=== PATIENT | male | born 1990 | race Caucasian/White ===

== ENCOUNTER 2023-05-15 17:29 | Emergency (ER) | payer BC, SELFPAY ==
[2023-05-15 17:38] VITALS: BP 130/84; PULSE 82; RESP 18; TEMP 36.7; O2SAT 100
--- NOTE | 2023-05-15 18:33 | ED.MALEGU ---
HPI - Male Genitourinary General Chief complaint: Urogenital-Male Stated complaint: std test Time Seen by Provider: 05/15/23 18:20 Source: patient, RN notes reviewed and old records reviewed Mode of arrival: ambulatory Limitations: no limitations History of Present Illness HPI Narrative: 33 year old male presets to express care with concern for std exposure. Patient reports that his significant other was diagnosed with gonorrhea this week. He states positive exposure to gonorrhea from significant other and wants to be tested and treated today. Patient reports that he has no symptoms of penis pain or any drainage or any burning with urination. Patient reports that he has scattered red rash that he thinks is from gonorrhea, no pustules noted, on arms and legs none reported in groin.. MD Complaint: other (reports exposure to gonorrhea) Onset (ago): day(s) (2) Associated symptoms: Reports rash Related Data Allergies Allergy/AdvReac Type Severity Reaction Status Date / Time No Known Allergies Allergy Verified 05/15/23 17:59 Review of Systems Review of Systems: CONSTITUTIONAL: Denies fever, chills, or sweats. CARDIOVASCULAR: Denies chest pain, palpitations, or edema. RESPIRATORY: Denies cough or dyspnea. GASTROINTESTINAL: Denies abdominal pain, nausea, vomiting, or diarrhea. GENITOURINARY: Reports no dysuria, frequency, urgency. Denies flank pain or hematuria.no penis pain or drainage SKIN: Reports red scattered small raised rash on arms and legs,itching. MUSCULOSKELETAL: Denies back pain or myalgia. Denies CVA tenderness NEUROLOGIC: Denies headache All systems reviewed & are unremarkable except as noted in HPI and below PMFSH Past Medical History Medical History (Updated 05/17/23 @ 16:41 by Margie Zepeda NP) Anxiety Borderline personality disorder Social History Social History (Updated 05/17/23 @ 16:40 by Margie Zepeda NP) Smoking packs per day: 0.5 Smoking cigarettes per day: 10.0 Years smoked: 15 Smoking pack-years: 7.50 Smoking status: Current every day smoker Tobacco type: cigarettes and e-cigarettes/vaping Alcohol intake: unknown Substance use: unknown Comments At time of signature, agree with nursing past medical, surgical, social and family history. There is no relevant family history pertinent to the presenting complaint Exam Narrative: GENERAL: Well-appearing, well-nourished, and in no acute distress. HEAD: Normocephalic, atraumatic. NECK: Supple. no lymphadenopathy CHEST: Clear to auscultation. No respiratory distress.SAO2 100% on room air HEART: Regular rate and rhythm. No murmur heard. Normal peripheral pulses. ABDOMEN: Soft, nontender, nondistended, normal active bowel sounds. No CVA tenderness, denies any testicle pain or any drainage from penis or any burning on urination EXTREMITIES: Normal range of motion. No edema. SKIN: Warm, dry, small areas of red raised rash no pustules on arms and legs, NEURO: No focal deficits. Alert and oriented x3. Course Course Emergency Course: Patient is aware of diagnosis, understands and agrees to treatment plan.? Anticipatory guidance given.? Patient agrees to follow-up as directed and is aware of reasons to seek care at the emergency department. Portions of this record may have been created with voice recognition software Level of Care: Express Care Visit Vital Signs Vital signs: Vital Signs Temperature 36.7 C 05/15/23 17:38 Pulse Rate 82 05/15/23 17:38 Respiratory Rate 18 05/15/23 17:38 Blood Pressure 130/84 05/15/23 17:38 Pulse Oximetry 100 05/15/23 17:38 Oxygen Delivery Room Air 05/15/23 17:38 Temperature 36.7 C 05/15/23 17:38 Pulse Rate 82 05/15/23 17:38 Respiratory Rate 18 05/15/23 17:38 Blood Pressure 130/84 05/15/23 17:38 Pulse Oximetry 100 05/15/23 17:38 Oxygen Delivery Room Air 05/15/23 17:38 MDM - Male Genitourinary MDM Narrative Medical decision making narra
[2023-05-15] MEDS: cefTRIAXone 1 GM, LIDOCAINE HCL 1% LOCAL INJ 2.1 ML IM (18:47)
[2023-05-16 14:29] LABS: Trichomonas Vag PCR NOT DETECTED (NOT DETECTE)
[2023-05-16 14:50] LABS: Chlamydia trachomatis NOT DETECTED (NOT DETECTE); Neisseria gonorrhoeae PCR NOT DETECTED (NOT DETECTE)
== END 2023-05-15 19:30 | disposition home or self-care (01) ==
PROVIDERS: Emergency Provider Registered Nurse
DX: Z20.2 Contact with and (suspected) exposure to infections with a predominantly sexual mode of transmission (principal); F17.210 Nicotine dependence, cigarettes, uncomplicated
CPT/HCPCS: 87491; 87591; 87661; 96372; 99213; G0463; J0696